=== PATIENT | female | born 1985 | race American Indian/Alaskan Native ===

== ENCOUNTER 2017-06-05 16:02 | Emergency (ER) | payer OTHER ==
[2017-06-05 16:23] VITALS: BP 136/78
[2017-06-05] MEDS ORDERED: DECADRON IM ONE (17:35)
--- NOTE | 2017-06-05 17:38 | Emergency Department Report ---
Entered by DANIA GOLD, acting as scribe for KJ GALICIA PA. - General Chief Complaint: Upper Respiratory Infection Stated Complaint: COUGHING/SORE THROAT/BACK PAIN Time Seen by Provider: 06/05/17 17:17 Source: patient Mode of arrival: Ambulatory Limitations: No Limitations - History of Present Illness Initial Comments: 32 y/o female with a PMHx of asthma, hyperlipidemia, and obesity presents to the ED c/o an upper respiratory infection that began 3 days ago. Aggravated with deep breaths and alleviated with nothing. Associated symptoms includes cough, 6/10 achy sore throat, rhinorrhea, and congestion, but she denies fever, chills, abdominal pain, nausea, vomiting, headache, dizziness, stiff neck, ear pain, chest pain, and SOB. Reports sore throat is aggravated with swallowing and alleviated with nothing. Took OTC cold medication with no relief. Denies any sick contacts. Allergic to penicillins. MD Complaint: cough, sore throat, nasal congestion Onset/Timin -: days(s) Severity: moderate Severity scale (0 -10): 6 (sore throat) Quality: aching Consistency: constant Improves With: nothing Worsens With: deep breaths Associated Symptoms: denies other symptoms, rhinorrhea, nasal congestion, sore throat, cough. denies: fever, chills, myalgias, diaphoresis, headache, stiff neck, chest pain, shortness of breath, abdominal pain, nausea, vomiting, diarrhea, dysuria, rash, confusion, right sweats, weight loss, epistaxis, hoarseness, ear pain Treatments Prior to Arrival: "cold medicine" - Related Data Previous Rx's Medication Instructions Recorded Last Taken Type Naproxen [Naprosyn] 500 mg PO BID PRN #10 tablet 06/30/16 Unknown Rx ALBUTEROL Inhaler [ProAir HFA 2 puff IH QID PRN #1 inhalation 06/05/17 Unknown Rx Inhaler] Benzonatate [Tessalon Perles] 100 mg PO Q8HR #20 capsule 06/05/17 Unknown Rx Doxycycline Monohydrate 100 mg PO BID #14 capsule 06/05/17 Unknown Rx [Doxycycline Monohydrate CAP] guaiFENesin/CODEINE [Robitussin AC] 5 ml PO Q8H #180 ml 06/05/17 Unknown Rx Allergies Allergy/AdvReac Type Severity Reaction Status Date / Time Penicillins Allergy Unknown Verified 06/30/16 10:54 ED Review of Systems Comment: All other systems reviewed and negative Constitutional: denies: chills, fever Eyes: denies: eye pain, eye discharge, vision change ENT: throat pain, congestion, other (rhinorrhea). denies: ear pain, dental pain , hearing loss, epistaxis Respiratory: cough. denies: orthopnea, shortness of breath, SOB with exertion, SOB at rest, stridor, wheezing Cardiovascular: denies: chest pain, palpitations, dyspnea on exertion, orthopnea , edema, syncope, paroxysmal nocturnal dyspnea Endocrine: no symptoms reported Gastrointestinal: denies: abdominal pain, nausea, vomiting, diarrhea Genitourinary: denies: urgency, dysuria, discharge Musculoskeletal: denies: back pain, joint swelling, arthralgia, myalgia Skin: denies: rash, lesions Neurological: denies: headache, weakness, numbness, paresthesias, confusion, abnormal gait, vertigo Psychiatric: denies: anxiety, depression Hematological/Lymphatic: denies: easy bleeding, easy bruising ED Past Medical Hx - Past Medical History Previous Medical History?: Yes Hx Diabetes: Yes ("borderline"--no meds) Hx Asthma: Yes Additional medical history: childhood heart murmur (Age 13). high cholesterol ( no meds). obesity - Surgical History Past Surgical History?: Yes Additional Surgical History: 2010; D&C 2006 - Family History Family history: no significant - Social History Smoking Status: Never Smoker Substance Use Type: None - Medications Home Medications: Home Medications Medication Instructions Recorded Confirmed Last Taken Type Naproxen [Naprosyn] 500 mg PO BID PRN #10 tablet 06/30/16 Unknown Rx ALBUTEROL Inhaler [ProAir HFA 2 puff IH QID PRN #1 inhalation 06/05/17 Unknown Rx Inhaler] Benzonatate [Tessalon Perles] 100 mg PO Q8HR #20 capsule 06/05/17 Unknown Rx Doxycycline Monohydrate 100 mg PO BID #14 capsule 06/05/17 Unknown Rx [Doxycycline Monohydrate CAP] guaiFENesin/CODEINE [Robitussin AC] 5 ml PO Q8H #180 ml 06/05/17 Unknown Rx ED Physical Exam - General Limitations: No Limitations General appearance: alert, in no apparent distress - Head Head exam: Present: atraumatic, normocephalic - Eye Eye exam: Present: normal appearance, PERRL, EOMI. Absent: scleral icterus, conjunctival injection, nystagmus, periorbital swelling, periorbital tenderness Pupils: Present: normal accommodation - ENT ENT exam: Present: normal exam, normal orophraynx, mucous membranes moist, TM's normal bilaterally, normal external ear exam, other (nasal turbinates congested bilaterally without erythema or drainage) - Expanded ENT Exam Expanded Ear exam: Present: normal external inspection Mouth exam: Present: normal external inspection (uvula is midline), tongue normal. Absent: drooling, trismus, muffled voice, tongue elevation, laceration Teeth exam: Present: normal inspection Throat exam: Positive: normal inspection. Negative: tonsillar erythema, tonsillomegaly, tonsillar exudate, R peritonsillar mass, L peritonsillar mass - Neck Neck exam: Present: normal inspection, full ROM. Absent: tenderness, meningismus, lymphadenopathy, thyromegaly - Respiratory Respiratory exam: Present: normal lung sounds bilaterally. Absent: respiratory distress, wheezes, rales, rhonchi, stridor, chest wall tenderness, accessory muscle use, decreased breath sounds - Cardiovascular Cardiovascular Exam: Present: regular rate, normal rhythm, normal heart sounds. Absent: systolic murmur, diastolic murmur, rubs, gallop - GI/Abdominal GI/Abdominal exam: Present: soft, normal bowel sounds. Absent: distended - Extremities Exam Extremities exam: Present: normal inspection - Back Exam Back exam: Present: normal inspection - Neurological Exam Neurological exam: Present: alert, oriented X3 - Psychiatric Psychiatric exam: Present: normal affect, normal mood - Skin Skin exam: Present: warm, dry, intact, normal color. Absent: rash ED Course Vital Signs 06/05/17 16:19 Temperature 98.4 F Pulse Rate 88 Respiratory 18 Rate Blood Pressure 136/78 O2 Sat by Pulse 100 Oximetry ED Medical Decision Making - Medical Decision Making patient is resting comfortably. NAD at this time, VSS for DC. ED Disposition Clinical Impression: Acute URI, Acute bronchitis Disposition: DC-01 TO HOME OR SELFCARE Is pt being admited?: No Does the pt Need Aspirin: No Condition: Good Instructions: Acute Bronchitis (ED) Prescriptions: ALBUTEROL Inhaler [ProAir HFA Inhaler] 2 puff IH QID PRN #1 inhalation PRN Reason: Shortness Of Breath Benzonatate [Tessalon Perles] 100 mg PO Q8HR #20 capsule Doxycycline Monohydrate [Doxycycline Monohydrate CAP] 100 mg PO BID #14 capsule guaiFENesin/CODEINE [Robitussin AC] 5 ml PO Q8H #180 ml Referrals: ANAY CALL MD [Staff Physician] - 3-5 Days Forms: Work/School Release Form(ED) Time of Disposition: 17:37 This documentation as recorded by the ASIF shultz JASMINE,accurately reflects the service I personally performed and the decisions made by , KJ GALICIA PA.
== END 2017-06-05 17:45 | disposition home or self-care (01) ==
LOC: ED 16:02
DX: J20.9 Acute bronchitis, unspecified (principal); J06.9 Acute upper respiratory infection, unspecified; J45.909 Unspecified asthma, uncomplicated; Z88.0 Allergy status to penicillin
CPT/HCPCS: 96372; 99282; J1100

== ENCOUNTER 2017-07-20 17:44 | Emergency (ER) | payer OTHER ==
[2017-07-20 17:53] VITALS: BP 128/72
== END 2017-07-20 17:46 | disposition left against medical advice (07) ==
LOC: ED 17:44
DX: M79.605 Pain in left leg (principal); Z53.21 Procedure and treatment not carried out due to patient leaving prior to being seen by health care provider

== ENCOUNTER 2017-10-31 11:39 | Emergency (ER) | payer OTHER ==
[2017-10-31 14:26] LABS: Hematocrit 36.7 % (30.3-42.9); Mean Corpuscular HGB Conc 33 % (30-34); Mean Corpuscular Hemoglobin 30 pg (28-32); Mean Corpuscular Volume 91 fl (79-97); Platelet Count 280 K/mm3 (140-440); Red Blood Count 4.03 M/mm3 (3.65-5.03); Red Cell Distribution Width 13.1 % (13.2-15.2)
[2017-10-31 14:28] LABS: BUN/Creatinine Ratio 15; Blood Urea Nitrogen 9 mg/dL (7-17); Calcium 8.4 mg/dL (8.4-10.2); Hemolysis Index 5
--- NOTE | 2017-10-31 14:37 | Vascular Lab Report ---
Left Lower Extremity Venous Duplex Study: Reason for Exam: Pain and swelling of the left lower extremity. Comments on the Right: A limited duplex study was done of the proximal veins of the right lower extremity. All veins visualized are freely compressible without evidence of internal echogenicity. Flow is spontaneous and phasic throughout. No evidence of acute or chronic thrombus is seen in any of the vessels visualized. Comments on the Left: All veins visualized are freely compressible without evidence of internal echogenicity. Flow is spontaneous and phasic throughout. No evidence of acute or chronic thrombus is seen in any of the vessels visualized. There are soft tissue change in the left knee area most compatible with an effusion or Goncalves's cyst. Impression: No evidence of acute or chronic deep venous thrombosis in the left lower extremity.
--- NOTE | 2017-10-31 22:49 | Emergency Department Report ---
HPI - General Chief Complaint: Extremity Injury, Lower Time Seen by Provider: 10/31/17 22:41 - HPI HPI: 32-year-old -[place] female comes in for left knee and right ankle pain. Patient reports that she had left knee surgery in March 2017 and she continues to have left leg pain. Patient also reports that her leg often have tingling and swelling. Patient complains of pain at her right ankle. Patient does follow up with a orthopedics which is Dr. Prince Lux. She is requesting a work excuse. Patient reports that she has had several x-rays of her ankle and leg and no seems to be able to find the reason why she has pain. Patient reports that she's been having right ankle pain for about 3 months. Patient does admit that she was told she has osteoarthritis in her left knee. ED Past Medical Hx - Past Medical History Hx Diabetes: Yes ("borderline"--no meds) Hx Asthma: Yes Additional medical history: childhood heart murmur (Age 13). high cholesterol ( no meds). obesity - Surgical History Additional Surgical History: 2010; D&C 2006,03/11/2017 left knee surgery - Social History Smoking Status: Unknown if ever smoked Substance Use Type: None - Medications Home Medications: Home Medications Medication Instructions Recorded Confirmed Last Taken Type ALBUTEROL Inhaler [ProAir HFA 2 puff IH QID PRN #1 inhalation 06/05/17 Unknown Rx Inhaler] Benzonatate [Tessalon Perles] 100 mg PO Q8HR #20 capsule 06/05/17 Unknown Rx Doxycycline Monohydrate 100 mg PO BID #14 capsule 06/05/17 Unknown Rx [Doxycycline Monohydrate CAP] guaiFENesin/CODEINE [Robitussin AC] 5 ml PO Q8H #180 ml 06/05/17 Unknown Rx Naproxen [Naprosyn TAB] 500 mg PO BID PRN #10 tablet 10/31/17 Unknown Rx ED Review of Systems ROS: Stated complaint: KNEE/ANKLE PAIN Other details as noted in HPI Comment: All other systems reviewed and negative Musculoskeletal: arthralgia, myalgia Physical Exam - Physical Exam Vital Signs: Vital Signs 10/31/17 12:43 Temperature 98.5 F Pulse Rate 67 Respiratory 18 Rate Blood Pressure 112/81 O2 Sat by Pulse 97 Oximetry Physical Exam: GENERAL: Alert and oriented x3, no apparent distress, Normal Gait, atraumatic. HEAD: Head is normocephalic and a-traumatic. EXTREMITIES/MUSCULOSKELETAL: No cyanosis, clubbing, rash, lesions or edema. Full ROM bilaterally. UE/LE Pulses 2+ bilaterally. LE and UE 5+ strength bilaterally NEUROLOGIC: No focal Deficit, Cranial nerves II through XII are grossly intact. No loss of sensation, No facial droop, . PSYCHIATRIC: Mood is congruent with affect, denies suicidal or homicidal ideations. SKIN: Warm and dry, No lesions, No ulceration or induration present ED Course Vital Signs 10/31/17 12:43 Temperature 98.5 F Pulse Rate 67 Respiratory 18 Rate Blood Pressure 112/81 O2 Sat by Pulse 97 Oximetry ED Medical Decision Making - Lab Data Result diagrams: 10/31/17 13:33 10/31/17 13:33 - Radiology Data Radiology results: report reviewed, image reviewed Comments on the Right: A limited duplex study was done of the proximal veins of the right lower extremity. All veins visualized are freely compressible without evidence of internal echogenicity. Flow is spontaneous and phasic throughout. No evidence of acute or chronic thrombus is seen in any of the vessels visualized. Comments on the Left: All veins visualized are freely compressible without evidence of internal echogenicity. Flow is spontaneous and phasic throughout. No evidence of acute or chronic thrombus is seen in any of the vessels visualized. There are soft tissue change in the left knee area most compatible with an effusion or Goncalves's cyst. Impression: No evidence of acute or chronic deep venous thrombosis in the left lower extremity. Transcribed By: KELLY Dictated By: STEF COLEMAN MD Electronically Authenticated By: STEF COLEMAN MD Critical care attestation.: If time is entered above; I have spent that time in minutes in the direct care of this critically ill patient, excluding procedure time. ED Disposition Clinical Impression: Chronic pain of right ankle Left knee pain Qualifiers: Chronicity: chronic Qualified Code(s): M25.562 - Pain in left knee; G89.29 - Other chronic pain; G89.29 - Other chronic pain Disposition: DC-01 TO HOME OR SELFCARE Is pt being admited?: No Does the pt Need Aspirin: No Condition: Stable Additional Instructions: Please take naproxen for pain. Follow-up with orthopedist. Prescriptions: Naproxen [Naprosyn TAB] 500 mg PO BID PRN #10 tablet PRN Reason: pain Referrals: MITESH HERNÁNDEZ MD [Primary Care Provider] - 3-5 Days [facility] [Provider Group] - 3-5 Days Forms: Work/School Release Form(ED)
[2017-10-31 23:28] VITALS: BP 117/63
== END 2017-10-31 23:28 | disposition home or self-care (01) ==
LOC: ED 11:39
DX: M25.571 Pain in right ankle and joints of right foot (principal); M17.12 Unilateral primary osteoarthritis, left knee; G89.29 Other chronic pain; J45.909 Unspecified asthma, uncomplicated; E78.00 Pure hypercholesterolemia, unspecified; Z88.0 Allergy status to penicillin
CPT/HCPCS: 36415; 80048; 84702; 85027; 99283

== ENCOUNTER 2018-03-15 14:52 | Emergency (ER) | payer OTHER ==
[2018-03-15 14:56] VITALS: BP 127/41
--- NOTE | 2018-03-15 16:09 | Emergency Department Report ---
ED Lower Extremity HPI - General Chief Complaint: Extremity Injury, Lower Stated Complaint: RIGHT ANKLE PAIN Time Seen by Provider: 03/15/18 15:48 Source: patient Mode of arrival: Ambulatory Limitations: No Limitations - History of Present Illness Initial Comments: Ms. Hyatt is a 32-year-old female with history of severe obesity and chronic ankle pain. Last year she injured her left knee at her place of employment. Subsequently she developed ankle pain in June. Has had chronic pain and left ankle with mild swelling. She is followed by Dr. Jimenez. Dr. Jimenez referred her to a ankle insurance customer service specialist specialist. She was prescribed a topical cream for the pain and swelling. She denies fever. She denies new injury. Her current weight is approximately 315 pounds. In high school she weighed approximately 150 pounds. MD Complaint: ankle injury -: Gradual, month(s) (9) Injury: Hip: Right, Ankle: Right Improves With: nothing Worsens With: weight bearing - Related Data Previous Rx's Medication Instructions Recorded Last Taken Type ALBUTEROL Inhaler [ProAir HFA 2 puff IH QID PRN #1 inhalation 06/05/17 Unknown Rx Inhaler] Benzonatate [Tessalon Perles] 100 mg PO Q8HR #20 capsule 06/05/17 Unknown Rx Doxycycline Monohydrate 100 mg PO BID #14 capsule 06/05/17 Unknown Rx [Doxycycline Monohydrate CAP] guaiFENesin/CODEINE [Robitussin AC] 5 ml PO Q8H #180 ml 06/05/17 Unknown Rx Naproxen [Naprosyn TAB] 500 mg PO BID PRN #10 tablet 10/31/17 Unknown Rx Ibuprofen 400 mg PO QID 5 Days #20 tablet 03/15/18 Unknown Rx Allergies Allergy/AdvReac Type Severity Reaction Status Date / Time Penicillins Allergy Unknown Verified 03/15/18 14:53 ED Review of Systems ROS: Stated complaint: RIGHT ANKLE PAIN Other details as noted in HPI Constitutional: denies: fever, malaise Respiratory: denies: cough, shortness of breath Cardiovascular: denies: chest pain Neurological: denies: headache ED Past Medical Hx - Past Medical History Hx Diabetes: Yes ("borderline"--no meds) Hx Asthma: Yes Additional medical history: childhood heart murmur (Age 13). high cholesterol ( no meds). obesity - Surgical History Additional Surgical History: 2010; D&C 2006,03/11/2017 left knee surgery - Social History Smoking Status: Never Smoker Substance Use Type: None - Medications Home Medications: Home Medications Medication Instructions Recorded Confirmed Last Taken Type ALBUTEROL Inhaler [ProAir HFA 2 puff IH QID PRN #1 inhalation 06/05/17 Unknown Rx Inhaler] Benzonatate [Tessalon Perles] 100 mg PO Q8HR #20 capsule 06/05/17 Unknown Rx Doxycycline Monohydrate 100 mg PO BID #14 capsule 06/05/17 Unknown Rx [Doxycycline Monohydrate CAP] guaiFENesin/CODEINE [Robitussin AC] 5 ml PO Q8H #180 ml 06/05/17 Unknown Rx Naproxen [Naprosyn TAB] 500 mg PO BID PRN #10 tablet 10/31/17 Unknown Rx Ibuprofen 400 mg PO QID 5 Days #20 tablet 03/15/18 Unknown Rx ED Physical Exam - General Limitations: No Limitations General appearance: alert, in no apparent distress - Head Head exam: Present: atraumatic, normocephalic - Eye Eye exam: Present: normal appearance - ENT ENT exam: Present: mucous membranes moist - Respiratory Respiratory exam: Absent: respiratory distress - Cardiovascular Cardiovascular Exam: Absent: systolic murmur, diastolic murmur, rubs, gallop - Extremities Exam Extremities exam: Present: other (mild ankle edema ) - Back Exam Back exam: Present: normal inspection - Neurological Exam Neurological exam: Present: alert, oriented X3 - Psychiatric Psychiatric exam: Present: normal affect, normal mood - Skin Skin exam: Present: warm, dry, intact, normal color. Absent: rash ED Course Vital Signs 03/15/18 14:50 Temperature 98.6 F Pulse Rate 65 Respiratory 18 Rate Blood Pressure 127/41 O2 Sat by Pulse 97 Oximetry ED Lower Extremity MDM - Medical Decision Making right ankle pain and edema chronic suspect with severe obesity DJD is highly likely no indication of septic or gouty arthritis rx: ibuprofen referred to PCP Critical care attestation.: If time is entered above; I have spent that time in minutes in the direct care of this critically ill patient, excluding procedure time. ED Disposition Clinical Impression: Chronic ankle pain Disposition: DC-01 TO HOME OR SELFCARE Is pt being admited?: No Does the pt Need Aspirin: No Condition: Stable Instructions: Arthralgia (ED) Prescriptions: Ibuprofen 400 mg PO QID 5 Days #20 tablet Referrals: PRIMARY CARE, [Primary Care Provider] - 3-5 Days Forms: Work/School Release Form(ED) Time of Disposition: 16:09
== END 2018-03-15 16:19 | disposition home or self-care (01) ==
LOC: ED 14:52
DX: R22.42 Localized swelling, mass and lump, left lower limb (principal); M25.572 Pain in left ankle and joints of left foot; G89.29 Other chronic pain; M25.562 Pain in left knee; J45.909 Unspecified asthma, uncomplicated; R03.0 Elevated blood-pressure reading, without diagnosis of hypertension; Z79.899 Other long term (current) drug therapy; Z88.0 Allergy status to penicillin; Z98.890 Other specified postprocedural states
CPT/HCPCS: 99282

== ENCOUNTER 2018-07-06 11:12 | Emergency (ER) | payer MEDICAID, OTHER ==
[2018-07-06 11:22] VITALS: BP 140/66
[2018-07-06 12:09] LABS: HCG Qualitative,Urine Negative (Negative)
--- NOTE | 2018-07-06 12:29 | Emergency Department Report ---
ED Upper Extremity Inj HPI - General Chief Complaint: Extremity Injury, Upper Stated Complaint: LT WRIST PAIN Time Seen by Provider: 07/06/18 12:23 Source: patient Mode of arrival: Ambulatory Limitations: No Limitations - History of Present Illness MD Complaint: Injury to:: left -: Sudden Other Extremity Injury: Wrist: Right Handedness: right Place: home Improves With: none Worsens With: none Context: fall Associated Symptoms: denies other symptoms - Related Data Previous Rx's Medication Instructions Recorded Last Taken Type ALBUTEROL Inhaler (OR & NICU) 2 puff IH QID PRN #1 inhalation 06/05/17 Unknown Rx [ProAir HFA Inhaler] Benzonatate [Tessalon Perles] 100 mg PO Q8HR #20 capsule 06/05/17 Unknown Rx Doxycycline Monohydrate 100 mg PO BID #14 capsule 06/05/17 Unknown Rx [Doxycycline Monohydrate CAP] guaiFENesin/CODEINE [Robitussin AC] 5 ml PO Q8H #180 ml 06/05/17 Unknown Rx Naproxen [Naprosyn TAB] 500 mg PO BID PRN #10 tablet 10/31/17 Unknown Rx Ibuprofen 400 mg PO QID 5 Days #20 tablet 03/15/18 Unknown Rx Allergies Allergy/AdvReac Type Severity Reaction Status Date / Time Penicillins Allergy Unknown Verified 03/15/18 14:53 all cillins Allergy Unknown Uncoded 07/06/18 11:23 ED Review of Systems ROS: Stated complaint: LT WRIST PAIN Other details as noted in HPI Comment: All other systems reviewed and negative Constitutional: no symptoms reported Respiratory: no symptoms reported Endocrine: no symptoms reported Musculoskeletal: other (LWRIST PAIN SP FOSH YESTERDAY) ED Past Medical Hx - Past Medical History Hx Diabetes: Yes ("borderline"--no meds) Hx Asthma: Yes Additional medical history: childhood heart murmur (Age 13). high cholesterol ( no meds). obesity - Surgical History Additional Surgical History: 2010; D&C 2006,03/11/2017 left knee surgery - Social History Smoking Status: Never Smoker Substance Use Type: None - Medications Home Medications: Home Medications Medication Instructions Recorded Confirmed Last Taken Type ALBUTEROL Inhaler (OR & NICU) 2 puff IH QID PRN #1 inhalation 06/05/17 Unknown Rx [ProAir HFA Inhaler] Benzonatate [Tessalon Perles] 100 mg PO Q8HR #20 capsule 06/05/17 Unknown Rx Doxycycline Monohydrate 100 mg PO BID #14 capsule 06/05/17 Unknown Rx [Doxycycline Monohydrate CAP] guaiFENesin/CODEINE [Robitussin AC] 5 ml PO Q8H #180 ml 06/05/17 Unknown Rx Naproxen [Naprosyn TAB] 500 mg PO BID PRN #10 tablet 10/31/17 Unknown Rx Ibuprofen 400 mg PO QID 5 Days #20 tablet 03/15/18 Unknown Rx ED Physical Exam - General Limitations: No Limitations General appearance: alert - Head Head exam: Present: atraumatic - Eye Eye exam: Present: normal appearance - ENT ENT exam: Present: mucous membranes moist - Neck Neck exam: Present: normal inspection - Respiratory Respiratory exam: Present: normal lung sounds bilaterally - Cardiovascular Cardiovascular Exam: Present: regular rate - GI/Abdominal GI/Abdominal exam: Present: soft, normal bowel sounds - Rectal Rectal exam: Present: deferred - Extremities Exam Extremities exam: Present: normal inspection - Expanded Upper Extremity Exam Left Upper Arm exam: Present: normal inspection Elbow exam: Present: normal inspection Forearm Wrist exam: Present: tenderness, swelling. Absent: abrasion, laceration , ecchymosis, deformity, crepidus, dislocation Hand Wrist exam: Present: normal inspection Vascular: Present: normal capillary refill, radial pulse, brachial pulse, ulnar pulse - Back Exam Back exam: Present: normal inspection, full ROM. Absent: tenderness - Neurological Exam Neurological exam: Present: alert, oriented X3 - Psychiatric Psychiatric exam: Present: normal affect, normal mood - Skin Skin exam: Present: warm, dry, intact, normal color. Absent: rash, cyanosis, diaphoretic, erythema, urticaria, vesicles ED Course Vital Signs 07/06/18 11:18 Temperature 98.3 F Pulse Rate 60 Respiratory 20 Rate Blood Pressure 140/66 O2 Sat by Pulse 98 Oximetry ED Medical Decision Making - Radiology Data Radiology results: report reviewed, image reviewed - Medical Decision Making NO SNUFF BOX TENDERNESS XRAY NEG IMMOB W SOFT SPLINT DC HOME W ORTHO FOLLOW UP NEUROVASC INTACT. - RADIAL AND ULNAR PULSE PLUS 2, RAPID CAP REFILL, DISTAL SENSATION INTACT. - Differential Diagnosis RO FX Critical care attestation.: If time is entered above; I have spent that time in minutes in the direct care of this critically ill patient, excluding procedure time. ED Disposition Clinical Impression: Wrist pain, left, Fall, Left wrist sprain Disposition: TO HOME OR SELFCARE Is pt being admited?: No Does the pt Need Aspirin: No Condition: Stable Instructions: Wrist Injury (ED) Additional Instructions: ICE ELEVATE TYLENOL OR MOTRIN FOR PAIN SPLINT INSTRUCTED ICE FOLLOW UP WITH ORTHO MD DIET TOLERATED Referrals: PRIMARY CARE, [Primary Care Provider] - 3-5 Days ESTEPHANIA BLACKWELL MD [Staff Physician] - 3-5 Days Time of Disposition: 12:55
--- NOTE | 2018-07-06 13:10 | XRay Report ---
XRAY LEFT WRIST THREE VIEWS:07/06/18 11:12:00 CLINICAL: Fall and wrist pain. FINDINGS: The examination was performed portable. The carpal bones are intact. No fracture or dislocation. Distal radius and ulna are intact. Normal soft tissues. IMPRESSION: Normal study.
[2018-07-06] MEDS ORDERED: NAPROSYN PO ONE (13:30)
== END 2018-07-06 13:24 | disposition home or self-care (01) ==
LOC: ED 11:12
DX: S63.502A Unspecified sprain of left wrist, initial encounter (principal); E11.9 Type 2 diabetes mellitus without complications; J45.909 Unspecified asthma, uncomplicated; Z88.1 Allergy status to other antibiotic agents; Z88.0 Allergy status to penicillin; W18.30XA Fall on same level, unspecified, initial encounter; Y93.89 Activity, other specified; Y92.89 Other specified places as the place of occurrence of the external cause; Y99.8 Other external cause status
CPT/HCPCS: 81025; 99283

== ENCOUNTER 2018-10-12 19:41 | Emergency (ER) | payer MEDICAID ==
[2018-10-12] MEDS ORDERED: TYLENOL PO ONE (20:03)
[2018-10-12] MEDS ORDERED: TYLENOL ONE (20:07)
[2018-10-12 20:18] LABS: Hematocrit 40.9 % (30.3-42.9); Hemoglobin 13.7 gm/dl (10.1-14.3); Mean Corpuscular HGB Conc 34 % (30-34); Mean Corpuscular Volume 93 fl (79-97); Platelet Count 260 K/mm3 (140-440); Red Blood Count 4.43 M/mm3 (3.65-5.03); Red Cell Distribution Width 13.3 % (13.2-15.2)
[2018-10-12 20:45] LABS: Alanine Aminotransferase 18 units/L (7-56); BUN/Creatinine Ratio 7; Blood Urea Nitrogen 6 mg/dL (7-17); Hemolysis Index 10
[2018-10-12] MEDS ORDERED: ZOFRAN IV ONE (20:49)
[2018-10-12] MEDS ORDERED: PROVENTIL IH ONE (20:49)
[2018-10-12] MEDS ORDERED: ATROVENT IH ONE (20:49)
[2018-10-12] MEDS ORDERED: NACL 0.9% 1000 ML 1,000 ML IV ONE ×2 (20:49→22:45)
[2018-10-12] MEDS ORDERED: DECADRON IV ONE (20:49)
[2018-10-12 20:56] LABS: Bilirubin,Urine NEG (Negative); Blood,Urine SM (Negative); Color,Urine Amber (Yellow); Mucus,Urine FEW /HPF
--- NOTE | 2018-10-12 21:01 | Emergency Department Report ---
- General Chief Complaint: Upper Respiratory Infection Stated Complaint: FEVER/COUGHING/BODYACHES Time Seen by Provider: 10/12/18 20:48 Source: patient Mode of arrival: Ambulatory Limitations: No Limitations - History of Present Illness Initial Comments: There is a 33-year-old female with history of asthma presents with malaise fever chills or productive cough 3 weeks normal asthma treatments patient states nausea no vomiting no diarrhea patient is tolerating by mouth intake. MD Complaint: fever, cough, rhinorrhea, nasal congestion, sinus pain Onset/Timin -: week(s) Severity: moderate Severity scale (0 -10): 4 Quality: aching Consistency: intermittent Improves With: nothing Worsens With: activity Associated Symptoms: fever, chills, myalgias, rhinorrhea, nasal congestion, sore throat, cough, nausea - Related Data Previous Rx's Medication Instructions Recorded Last Taken Type ALBUTEROL Inhaler (OR & NICU) 2 puff IH QID PRN #1 inhalation 06/05/17 Unknown Rx [ProAir HFA Inhaler] Benzonatate [Tessalon Perles] 100 mg PO Q8HR #20 capsule 06/05/17 Unknown Rx Doxycycline Monohydrate 100 mg PO BID #14 capsule 06/05/17 Unknown Rx [Doxycycline Monohydrate CAP] guaiFENesin/CODEINE [Robitussin AC] 5 ml PO Q8H #180 ml 06/05/17 Unknown Rx Ibuprofen 400 mg PO QID 5 Days #20 tablet 03/15/18 Unknown Rx Cyclobenzaprine [Flexeril 10 MG 10 mg PO TID #15 tablet 08/18/18 Unknown Rx TAB] Naproxen [Naprosyn TAB] 500 mg PO BID PRN #10 tablet 08/18/18 Unknown Rx ALBUTEROL Inhaler(NF) [VENTOLIN 2 puff IH Q4H PRN #1 inha 10/13/18 Unknown Rx Inhaler(NF)] Azithromycin [Zithromax Z-SEAMUS] 250 mg PO DAILY #6 tab 10/13/18 Unknown Rx Codeine Phosphate/Guaifenesin 5 ml PO TID PRN #120 ml 10/13/18 Unknown Rx [Guaifenesin-Codeine Syrup] Ibuprofen 800 mg PO TID PRN #30 tablet 10/13/18 Unknown Rx Allergies Allergy/AdvReac Type Severity Reaction Status Date / Time Penicillins Allergy Unknown Verified 03/15/18 14:53 all cillins Allergy Unknown Uncoded 07/06/18 11:23 ED Review of Systems ROS: Stated complaint: FEVER/COUGHING/BODYACHES Other details as noted in HPI Constitutional: chills, fever, malaise Eyes: denies: eye pain, eye discharge, vision change ENT: throat pain, congestion Respiratory: cough, wheezing Cardiovascular: denies: chest pain, palpitations Endocrine: no symptoms reported Gastrointestinal: nausea. denies: abdominal pain, vomiting, diarrhea Genitourinary: denies: urgency, dysuria, discharge Musculoskeletal: other (bodyaches). denies: back pain, joint swelling, arthralgia Skin: denies: rash, lesions Neurological: denies: headache, weakness, paresthesias Psychiatric: denies: anxiety, depression Hematological/Lymphatic: denies: easy bleeding, easy bruising ED Past Medical Hx - Past Medical History Previous Medical History?: Yes Hx Diabetes: Yes ("borderline"--no meds) Hx Asthma: Yes Additional medical history: childhood heart murmur (Age 13). high cholesterol (no meds). obesity - Surgical History Past Surgical History?: Yes Additional Surgical History: 2010; D&C 2006,03/11/2017 left knee surgery - Social History Smoking Status: Never Smoker Substance Use Type: None - Medications Home Medications: Home Medications Medication Instructions Recorded Confirmed Last Taken Type ALBUTEROL Inhaler (OR & NICU) 2 puff IH QID PRN #1 inhalation 06/05/17 Unknown Rx [ProAir HFA Inhaler] Benzonatate [Tessalon Perles] 100 mg PO Q8HR #20 capsule 06/05/17 Unknown Rx Doxycycline Monohydrate 100 mg PO BID #14 capsule 06/05/17 Unknown Rx [Doxycycline Monohydrate CAP] guaiFENesin/CODEINE [Robitussin AC] 5 ml PO Q8H #180 ml 06/05/17 Unknown Rx Ibuprofen 400 mg PO QID 5 Days #20 tablet 03/15/18 Unknown Rx Cyclobenzaprine [Flexeril 10 MG 10 mg PO TID #15 tablet 08/18/18 Unknown Rx TAB] Naproxen [Naprosyn TAB] 500 mg PO BID PRN #10 tablet 08/18/18 Unknown Rx ALBUTEROL Inhaler(NF) [VENTOLIN 2 puff IH Q4H PRN #1 inha 10/13/18 Unknown Rx Inhaler(NF)] Azithromycin [Zithromax Z-SEAMUS] 250 mg PO DAILY #6 tab 10/13/18 Unknown Rx Codeine Phosphate/Guaifenesin 5 ml PO TID PRN #120 ml 10/13/18 Unknown Rx [Guaifenesin-Codeine Syrup] Ibuprofen 800 mg PO TID PRN #30 tablet 10/13/18 Unknown Rx ED Physical Exam - General Limitations: No Limitations General appearance: alert, in no apparent distress - Head Head exam: Present: atraumatic, normocephalic - Eye Eye exam: Present: normal appearance, PERRL, EOMI - ENT ENT exam: Present: normal orophraynx, mucous membranes moist, TM's normal bilaterally, normal external ear exam - Neck Neck exam: Present: normal inspection, full ROM. Absent: tenderness, meningismus, lymphadenopathy, thyromegaly - Respiratory Respiratory exam: Present: wheezes. Absent: stridor, chest wall tenderness, prolonged expiratory - Cardiovascular Cardiovascular Exam: Present: normal rhythm, tachycardia, normal heart sounds. Absent: systolic murmur, diastolic murmur, rubs, gallop - GI/Abdominal GI/Abdominal exam: Present: soft, normal bowel sounds. Absent: tenderness, rigid, bruit, hernia - Rectal Rectal exam: Present: deferred - Extremities Exam Extremities exam: Present: normal inspection, normal capillary refill - Back Exam Back exam: Present: full ROM. Absent: tenderness, CVA tenderness (R), CVA ten derness (L), rash noted - Neurological Exam Neurological exam: Present: alert, oriented X3, CN II-XII intact, normal gait - Psychiatric Psychiatric exam: Present: normal affect, normal mood - Skin Skin exam: Present: warm, dry, intact, normal color. Absent: rash ED Course Vital Signs 10/12/18 10/12/18 10/12/18 19:49 19:52 21:05 Temperature 101.8 F H 101.8 F H Pulse Rate 122 H 120 H Respiratory 18 18 20 Rate Blood Pressure 137/89 137/89 O2 Sat by Pulse 96 96 Oximetry ED Medical Decision Making - Lab Data Result diagrams: 10/12/18 20:05 10/12/18 20:05 Labs 10/12/18 10/12/1819 20:05 20:05 20:05 WBC 8.8 RBC 4.43 Hgb 13.7 Hct 40.9 MCV 93 MCH 31 MCHC 34 RDW 13.3 Plt Count 260 [place] % (Auto) Vegetable Farmer Add Manual Diff Complete Total Counted 100 Seg Neuts % (Manual) 63.0 Band Neutrophils % 0 Lymphocytes % (Manual) 19.0 Reactive Lymphs % (Man) 0 Monocytes % (Manual) 18.0 H Eosinophils % (Manual) 0 Basophils % (Manual) 0 Metamyelocytes % 0 Myelocytes % 0 Promyelocytes % 0 Blast Cells % 0 Nucleated RBC % Not Reportable Seg Neutrophils # Man 5.5 Band Neutrophils # 0.0 Lymphocytes # (Manual) 1.7 Abs React Lymphs (Man) 0.0 Monocytes # (Manual) 1.6 H Eosinophils # (Manual) 0.0 Basophils # (Manual) 0.0 Metamyelocytes # 0.0 Myelocytes # 0.0 Promyelocytes # 0.0 Blast Cells # 0.0 WBC Morphology Not Reportable Hypersegmented Neuts Not Reportable Hyposegmented Neuts Not Reportable Hypogranular Neuts Not Reportable Smudge Cells Not Reportable Toxic Granulation Not Reportable Toxic Vacuolation Not Reportable Dohle Bodies Not Reportable Pelger-Huet Anomaly Not Reportable Andrew Rods Not Reportable Platelet Estimate Consistent w auto Clumped Platelets Not Reportable Plt Clumps, EDTA Not Reportable Large Platelets Not Reportable Giant Platelets Not Reportable Platelet Satelliting Not Reportable Plt Morphology Comment Not Reportable RBC Morphology Normal Dimorphic RBCs Not Reportable Polychromasia Not Reportable Hypochromasia Not Reportable Poikilocytosis Not Reportable Anisocytosis Not Reportable Microcytosis Not Reportable Macrocytosis Not Reportable Spherocytes Not Reportable Pappenheimer Bodies Not Reportable Sickle Cells Not Reportable Target Cells Not Reportable Tear Drop Cells Not Reportable Ovalocytes Not Reportable Helmet Cells Not Reportable [place] Bodies Not Reportable Vickery Rings Not Reportable Radha Cells Not Reportable Bite Cells Not Reportable Crenated Cell Not Reportable Elliptocytes Not Reportable Acanthocytes (Spur) Not Reportable Rouleaux Not Reportable Hemoglobin C Crystals Not Reportable Schistocytes Not Reportable Malaria parasites Not Reportable Sincere Bodies Not Reportable Hem Pathologist Commnt No Sodium 138 Potassium 3.4 L Chloride 101.7 Carbon Dioxide 25 Anion Gap 15 BUN 6 L Creatinine 0.9 Estimated GFR > 60 BUN/Creatinine Ratio 7 Glucose 103 H Calcium 9.0 Total Bilirubin 0.90 AST 19 ALT 18 Alkaline Phosphatase 70 Total Protein 7.4 Albumin 4.0 Albumin/Globulin Ratio 1.2 HCG, Qual Negative Urine Color Urine Turbidity Urine pH Ur Specific [place] Urine Protein Urine Glucose (UA) Urine Ketones Urine Blood Urine Nitrite Urine Bilirubin Urine Urobilinogen Ur Leukocyte Esterase Urine WBC (Auto) Urine RBC (Auto) U Epithel Cells (Auto) Urine Mucus 10/12/18 20:39 WBC RBC Hgb Hct MCV MCH MCHC RDW Plt Count [place] % (Auto) Add Manual Diff Total Counted Seg Neuts % (Manual) Band Neutrophils % Lymphocytes % (Manual) Reactive Lymphs % (Man) Monocytes % (Manual) Eosinophils % (Manual) Basophils % (Manual) Metamyelocytes % Myelocytes % Promyelocytes % Blast Cells % Nucleated RBC % Seg Neutrophils # Man Band Neutrophils # Lymphocytes # (Manual) Abs React Lymphs (Man) Monocytes # (Manual) Eosinophils # (Manual) Basophils # (Manual) Metamyelocytes # Myelocytes # Promyelocytes # Blast Cells # WBC Morphology Hypersegmented Neuts Hyposegmented Neuts Hypogranular Neuts Smudge Cells Toxic Granulation Toxic Vacuolation Dohle Bodies Pelger-Huet Anomaly Andrew Rods Platelet Estimate Clumped Platelets Plt Clumps, EDTA Large Platelets Giant Platelets Platelet Satelliting Plt Morphology Comment RBC Morphology Dimorphic RBCs Polychromasia Hypochromasia Poikilocytosis Anisocytosis Microcytosis Macrocytosis Spherocytes Pappenheimer Bodies Sickle Cells Target Cells Tear Drop Cells Ovalocytes Helmet Cells [place] Bodies Vickery Rings Rudyard Cells Bite Cells Crenated Cell Elliptocytes Acanthocytes (Spur) Rouleaux Hemoglobin C Crystals Schistocytes Malaria parasites Sincere Bodies Hem Pathologist Commnt Sodium Potassium Chloride Carbon Dioxide Anion Gap BUN Creatinine Estimated GFR BUN/Creatinine Ratio Glucose Calcium Total Bilirubin AST ALT Alkaline Phosphatase Total Protein Albumin Albumin/Globulin Ratio HCG, Qual Urine Color Becca Urine Turbidity Clear Urine pH 5.0 Ur Specific [place] 1.014 Urine Protein 100 mg/dl Urine Glucose (UA) Neg Urine Ketones Neg Urine Blood Sm Urine Nitrite Neg Urine Bilirubin Neg Urine Urobilinogen 4.0 Ur Leukocyte Esterase Neg Urine WBC (Auto) 3.0 Urine RBC (Auto) 2.0 U Epithel Cells (Auto) 4.0 Urine Mucus Few - Radiology Data Radiology results: report reviewed, image reviewed FINDINGS: There appear to be patchy areas of pulmonary consolidation in the perihilar regions bilaterally and right lung base. There is no evidence of pneumothorax or pleural fluid collection. The cardiac silhouette is normal size. The thoracic aorta and bony structures are unremarkable. IMPRESSION: 1. Appearance of bilateral pulmonary infiltrates. Probable pneumonia. Follow-up to resolution is recommended. Transcribed By: ED Dictated By: CHAYA FUENTES MD Electronically Authenticated By: CHAYA FUENTES MD Signed Date/Time: 10/12/182 - Medical Decision Making symptoms improved , pt is now ambulatory from room to main ed and return to room without increase sob pt advised breathing improved ,there is no wheezing no weakness no sob will dc to home , with zpack , albuterol inhaler, ibuprofen, sirena ratussin follow up with pcp in 2-3 days return to emergency department if symptoms worsen. pt verbalized agreement and understanding of same. Critical care attestation.: If time is entered above; I have spent that time in minutes in the direct care of this critically ill patient, excluding procedure time. ED Disposition Clinical Impression: CAP (community acquired pneumonia) Qualifiers: Laterality: unspecified laterality Qualified Code(s): J18.9 - Pneumonia, unspecified organism Disposition: DC-01 TO HOME OR SELFCARE Is pt being admited?: No Does the pt Need Aspirin: No Condition: Stable Instructions: Bacterial Pneumonia (ED), Community-acquired Pneumonia (ED) Prescriptions: ALBUTEROL Inhaler(NF) [VENTOLIN Inhaler(NF)] 2 puff IH Q4H PRN #1 inha PRN Reason: shortness of breath wheezing Azithromycin [Zithromax Z-SEAMUS] 250 mg PO DAILY #6 tab Codeine Phosphate/Guaifenesin [Guaifenesin-Codeine Syrup] 5 ml PO TID PRN #120 ml PRN Reason: Cough Ibuprofen 800 mg PO TID PRN #30 tablet PRN Reason: pain fever Referrals: PRIMARY CARE, [Primary Care Provider] - 3-5 Days [facility] [Outside] - 3-5 Days Forms: Work/School Release Form(ED) Time of Disposition: 00:23
[2018-10-12 21:34] LABS: Basophils % (Manual) 0 % (0.0-1.8); Eosinophils % (Manual) 0 % (0.0-4.3); Platelet Estimate Consistent w Auto; RBC Morphology Normal; Total Cells Counted 100
--- NOTE | 2018-10-12 22:07 | XRay Report ---
FINAL REPORT EXAM: XR CHEST ROUTINE 2V HISTORY: cough with fever TECHNIQUE: PA and lateral views of the chest Comparison: None FINDINGS: There appear to be patchy areas of pulmonary consolidation in the perihilar regions bilaterally and r ight lung base. There is no evidence of pneumothorax or pleural fluid collection. The cardiac silhouette is normal size. The thoracic aorta and bony structures are unremarkable. IMPRESSION: 1. Appearance of bilateral pulmonary infiltrates. Probable pneumonia. Follow-up to resolution is david mmended.
[2018-10-12] MEDS ORDERED: ROCEPHIN/NS 1 GM/50 ML 1 GM/50 ML BAG IV ONE (22:45)
[2018-10-12 23:42] LABS: INR 1.24 (0.87-1.13)
[2018-10-12 23:43] LABS: Partial Thromboplastin Time 33.3 Sec. (24.2-36.6)
[2018-10-13 02:08] VITALS: BP 107/70
== END 2018-10-13 01:55 | disposition home or self-care (01) ==
LOC: ED 19:41
DX: J18.9 Pneumonia, unspecified organism (principal); E11.9 Type 2 diabetes mellitus without complications; E78.00 Pure hypercholesterolemia, unspecified; J45.909 Unspecified asthma, uncomplicated; Z88.0 Allergy status to penicillin; Z79.899 Other long term (current) drug therapy
CPT/HCPCS: 36415; 71046; 80053; 81001; 82140; 84703; 85007; 85025; 85610; 85730; 87040; 94640; 96365; 96375; 99284; J0696; J1100; J2405; J7030

== ENCOUNTER 2018-10-20 13:52 | Emergency (ER) | payer MEDICAID ==
--- NOTE | 2018-10-20 14:29 | Emergency Department Report ---
ED General Adult HPI - General Chief complaint: Pain General Stated complaint: SORENESS WHEN COUGHING Time Seen by Provider: 10/20/18 14:20 Source: patient Mode of arrival: Ambulatory Limitations: No Limitations - History of Present Illness Initial comments: Andreea is a very pleasant 33-year-old female who was recovering from pneumonia and flulike illness since last week. She finished a course of antibiotics. Her symptoms have improved. However she has persistent body aches. Denies any current fever. Denies any chills. She still has mild generalized malaise. She explains "I does want this to be over." -: week(s) (1) Location: upper extremity, lower extremity Severity scale (0 -10): 5 Quality: aching Consistency: constant Improves with: medication (antibiotics) Associated Symptoms: cough, malaise - Related Data Previous Rx's Medication Instructions Recorded Last Taken Type ALBUTEROL Inhaler (OR & NICU) 2 puff IH QID PRN #1 inhalation 06/05/17 Unknown Rx [ProAir HFA Inhaler] Benzonatate [Tessalon Perles] 100 mg PO Q8HR #20 capsule 06/05/17 Unknown Rx Doxycycline Monohydrate 100 mg PO BID #14 capsule 06/05/17 Unknown Rx [Doxycycline Monohydrate CAP] guaiFENesin/CODEINE [Robitussin AC] 5 ml PO Q8H #180 ml 06/05/17 Unknown Rx Ibuprofen 400 mg PO QID 5 Days #20 tablet 03/15/18 Unknown Rx Cyclobenzaprine [Flexeril 10 MG 10 mg PO TID #15 tablet 08/18/18 Unknown Rx TAB] Naproxen [Naprosyn TAB] 500 mg PO BID PRN #10 tablet 08/18/18 Unknown Rx ALBUTEROL Inhaler(NF) [VENTOLIN 2 puff IH Q4H PRN #1 inha 10/13/18 Unknown Rx Inhaler(NF)] Azithromycin [Zithromax Z-SEAMUS] 250 mg PO DAILY #6 tab 10/13/18 Unknown Rx Codeine Phosphate/Guaifenesin 5 ml PO TID PRN #120 ml 10/13/18 Unknown Rx [Guaifenesin-Codeine Syrup] Ibuprofen 800 mg PO TID PRN #30 tablet 10/13/18 Unknown Rx Allergies Allergy/AdvReac Type Severity Reaction Status Date / Time Penicillins Allergy Unknown Verified 03/15/18 14:53 all cillins Allergy Unknown Uncoded 07/06/18 11:23 ED Review of Systems ROS: Stated complaint: SORENESS WHEN COUGHING Other details as noted in HPI Comment: All other systems reviewed and negative Constitutional: malaise Respiratory: cough. denies: shortness of breath Cardiovascular: denies: chest pain ED Past Medical Hx - Past Medical History Previous Medical History?: Yes Hx Diabetes: Yes ("borderline"--no meds) Hx Asthma: Yes Additional medical history: childhood heart murmur (Age 13). high cholesterol (no meds). obesity - Surgical History Past Surgical History?: Yes Additional Surgical History: 2010; D&C 2006,03/11/2017 left knee surgery - Social History Smoking Status: Never Smoker Substance Use Type: None - Medications Home Medications: Home Medications Medication Instructions Recorded Confirmed Last Taken Type ALBUTEROL Inhaler (OR & NICU) 2 puff IH QID PRN #1 inhalation 06/05/17 Unknown Rx [ProAir HFA Inhaler] Benzonatate [Tessalon Perles] 100 mg PO Q8HR #20 capsule 06/05/17 Unknown Rx Doxycycline Monohydrate 100 mg PO BID #14 capsule 06/05/17 Unknown Rx [Doxycycline Monohydrate CAP] guaiFENesin/CODEINE [Robitussin AC] 5 ml PO Q8H #180 ml 06/05/17 Unknown Rx Ibuprofen 400 mg PO QID 5 Days #20 tablet 03/15/18 Unknown Rx Cyclobenzaprine [Flexeril 10 MG 10 mg PO TID #15 tablet 08/18/18 Unknown Rx TAB] Naproxen [Naprosyn TAB] 500 mg PO BID PRN #10 tablet 08/18/18 Unknown Rx ALBUTEROL Inhaler(NF) [VENTOLIN 2 puff IH Q4H PRN #1 inha 10/13/18 Unknown Rx Inhaler(NF)] Azithromycin [Zithromax Z-SEAMUS] 250 mg PO DAILY #6 tab 10/13/18 Unknown Rx Codeine Phosphate/Guaifenesin 5 ml PO TID PRN #120 ml 10/13/18 Unknown Rx [Guaifenesin-Codeine Syrup] Ibuprofen 800 mg PO TID PRN #30 tablet 10/13/18 Unknown Rx ED Physical Exam - General Limitations: No Limitations General appearance: alert, in no apparent distress - Head Head exam: Present: atraumatic, normocephalic - Eye Eye exam: Present: normal appearance - ENT ENT exam: Present: mucous membranes moist - Neck Neck exam: Present: normal inspection. Absent: tenderness, meningismus - Respiratory Respiratory exam: Present: normal lung sounds bilaterally. Absent: respiratory distress, wheezes, rales, rhonchi - Cardiovascular Cardiovascular Exam: Present: regular rate, normal rhythm. Absent: systolic murmur, diastolic murmur, rubs, gallop - GI/Abdominal GI/Abdominal exam: Present: soft, normal bowel sounds - Extremities Exam Extremities exam: Present: normal inspection - Back Exam Back exam: Present: normal inspection - Neurological Exam Neurological exam: Present: alert, oriented X3 - Psychiatric Psychiatric exam: Present: normal affect, normal mood - Skin Skin exam: Present: warm, dry, intact, normal color. Absent: rash ED Course Vital Signs 10/20/18 14:03 Temperature 97.9 F Pulse Rate 92 H Respiratory 18 Rate Blood Pressure 135/66 O2 Sat by Pulse 97 Oximetry ED Medical Decision Making - Medical Decision Making Fortunately Jonathan is recovering from community acquired pneumonia and likely influenza. Given reassurance. Instructed to continue to hydrate and rest. She appears well today. Discharged home with instructions for supportive care. Critical care attestation.: If time is entered above; I have spent that time in minutes in the direct care of this critically ill patient, excluding procedure time. ED Disposition Clinical Impression: Muscle ache, History of pneumonia, Flu-like symptoms Disposition: DC-01 TO HOME OR SELFCARE Is pt being admited?: No Does the pt Need Aspirin: No Condition: Stable Referrals: JOHNNY RUBALCAVA MD [Primary Care Provider] - 3-5 Days Forms: Work/School Release Form(ED)
== END 2018-10-20 14:33 | disposition home or self-care (01) ==
LOC: ED 13:52
CPT/HCPCS: 99282

== ENCOUNTER 2019-07-25 10:45 | Emergency (ER) | payer MEDICAID ==
[2019-07-25 10:57] VITALS: BP 108/73
--- NOTE | 2019-07-25 12:54 | Emergency Department Report ---
ED Back Pain/Injury HPI - General Chief Complaint: Urogenital-Female Stated Complaint: 3 DAYS HEADACHE/BACK PAIN Time Seen by Provider: 07/25/19 11:00 Source: patient Limitations: No Limitations - History of Present Illness Initial Comments: This is a 34-year-old female nontoxic, well nourished in appearance, no acute signs of distress presents to the ED with c/o of acute on chronic lower back pain and headache. Patient describes headache as diffuse with level of 3 out of 10. Patient denies thunderclap headache. Patient denies any radiation of pain. Patient denies any head trauma. Patient denies any visual changes. Patient denies worse headache. Patient stated that darkness makes headache better and bright lights make the headache worse. 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 Patient stated that the past 2 days she was moving and developed this pain. 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 PAtient denies any radiation of pain. Patient denies any trauma. Denies any bladder or bowel instability. Patient denies any urinary symptoms. Denies any fever, chills, nausea, vomiting, stiff neck, chest pain or shortness of breath. Patient denies any numbness or tingling. Stated allergies to PCN. PMH includes migrane headches,. MD Complaint: back pain, other (hedache) -: days(s) Similar Symptoms Previously: Yes Place: home Radiation: none Severity: mild Severity scale (0 -10): 3 Quality: aching Consistency: constant Improves With: immobilization, sitting upright Worsens With: movement, walking Context: while lifting, turning/twisting Associated Symptoms: headaches. denies: confusion, weakness, chest pain, numbness, difficulty walking, cough, difficulty urinating, diaphoresis, incontinence, constipation, abdominal pain, loss of appetite, malaise, nausea/vomiting, rash, seizure, shortness of breath, syncope - Related Data Previous Rx's Medication Instructions Recorded Last Taken Type ALBUTEROL Inhaler (OR & NICU) 2 puff IH QID PRN #1 inhalation 06/05/17 Unknown Rx [ProAir HFA Inhaler] Benzonatate [Tessalon Perles] 100 mg PO Q8HR #20 capsule 06/05/17 Unknown Rx Doxycycline Monohydrate 100 mg PO BID #14 capsule 06/05/17 Unknown Rx [Doxycycline Monohydrate CAP] guaiFENesin/CODEINE [Robitussin AC] 5 ml PO Q8H #180 ml 06/05/17 Unknown Rx Ibuprofen [Ibuprofen 400] 400 mg PO QID 5 Days #20 tablet 03/15/18 Unknown Rx Cyclobenzaprine [Flexeril 10 MG 10 mg PO TID #15 tablet 08/18/18 Unknown Rx TAB] Naproxen [Naprosyn TAB] 500 mg PO BID PRN #10 tablet 08/18/18 Unknown Rx ALBUTEROL Inhaler(NF) [VENTOLIN 2 puff IH Q4H PRN #1 inha 10/13/18 Unknown Rx Inhaler(NF)] Azithromycin [Zithromax Z-SEAMUS] 250 mg PO DAILY #6 tab 10/13/18 Unknown Rx Codeine Phosphate/Guaifenesin 5 ml PO TID PRN #120 ml 10/13/18 Unknown Rx [Guaifenesin-Codeine Syrup] Ibuprofen [Ibuprofen 800] 800 mg PO TID PRN #30 tablet 10/13/18 Unknown Rx Naproxen [Naprosyn] 500 mg PO BID PRN #20 tablet 06/23/19 Unknown Rx Cyclobenzaprine [Flexeril] 10 mg PO QHS PRN #10 tablet 07/25/19 Unknown Rx Ibuprofen [Motrin] 600 mg PO Q8H PRN #20 tablet 07/25/19 Unknown Rx Allergies Allergy/AdvReac Type Severity Reaction Status Date / Time Penicillins Allergy Unknown Verified 07/25/19 10:51 all cillins Allergy Unknown Uncoded 07/06/18 11:23 ED Review of Systems ROS: Stated complaint: 3 DAYS HEADACHE/BACK PAIN Other details as noted in HPI Constitutional: denies: chills, fever Eyes: denies: eye pain, eye discharge, vision change ENT: denies: ear pain, throat pain Respiratory: denies: cough, shortness of breath, wheezing Cardiovascular: denies: chest pain, palpitations Endocrine: no symptoms reported Gastrointestinal: denies: abdominal pain, nausea, diarrhea Genitourinary: denies: urgency, dysuria, discharge Musculoskeletal: back pain. denies: joint swelling, arthralgia Skin: denies: rash, lesions Neurological: headache. denies: weakness, paresthesias Psychiatric: denies: anxiety, depression Hematological/Lymphatic: denies: easy bleeding, easy bruising ED Past Medical Hx - Past Medical History Hx Diabetes: Yes ("borderline"--no meds) Hx Asthma: Yes Additional medical history: childhood heart murmur (Age 13). high cholesterol (no meds). obesity - Surgical History Additional Surgical History: 2010; D&C 2006,03/11/2017 left knee surgery - Social History Smoking Status: Never Smoker Substance Use Type: None - Medications Home Medications: Home Medications Medication Instructions Recorded Confirmed Last Taken Type ALBUTEROL Inhaler (OR & NICU) 2 puff IH QID PRN #1 inhalation 06/05/17 Unknown Rx [ProAir HFA Inhaler] Benzonatate [Tessalon Perles] 100 mg PO Q8HR #20 capsule 06/05/17 Unknown Rx Doxycycline Monohydrate 100 mg PO BID #14 capsule 06/05/17 Unknown Rx [Doxycycline Monohydrate CAP] guaiFENesin/CODEINE [Robitussin AC] 5 ml PO Q8H #180 ml 06/05/17 Unknown Rx Ibuprofen [Ibuprofen 400] 400 mg PO QID 5 Days #20 tablet 03/15/18 Unknown Rx Cyclobenzaprine [Flexeril 10 MG 10 mg PO TID #15 tablet 08/18/18 Unknown Rx TAB] Naproxen [Naprosyn TAB] 500 mg PO BID PRN #10 tablet 08/18/18 Unknown Rx ALBUTEROL Inhaler(NF) [VENTOLIN 2 puff IH Q4H PRN #1 inha 10/13/18 Unknown Rx Inhaler(NF)] Azithromycin [Zithromax Z-SEAMUS] 250 mg PO DAILY #6 tab 10/13/18 Unknown Rx Codeine Phosphate/Guaifenesin 5 ml PO TID PRN #120 ml 10/13/18 Unknown Rx [Guaifenesin-Codeine Syrup] Ibuprofen [Ibuprofen 800] 800 mg PO TID PRN #30 tablet 10/13/18 Unknown Rx Naproxen [Naprosyn] 500 mg PO BID PRN #20 tablet 06/23/19 Unknown Rx Cyclobenzaprine [Flexeril] 10 mg PO QHS PRN #10 tablet 07/25/19 Unknown Rx Ibuprofen [Motrin] 600 mg PO Q8H PRN #20 tablet 07/25/19 Unknown Rx ED Physical Exam - General Limitations: No Limitations General appearance: alert, in no apparent distress - Head Head exam: Present: atraumatic, normocephalic - Eye Eye exam: Present: normal appearance, PERRL, EOMI - Neck Neck exam: Present: normal inspection, full ROM. Absent: tenderness, meningismus, lymphadenopathy - GI/Abdominal GI/Abdominal exam: Present: soft, normal bowel sounds. Absent: distended, tenderness, guarding, rebound, rigid, diminished bowel sounds - Extremities Exam Extremities exam: Present: normal inspection, full ROM - Back Exam Back exam: Present: normal inspection, full ROM, paraspinal tenderness (lumbar paraspinal). Absent: tenderness, CVA tenderness (R), CVA tenderness (L), muscle spasm, vertebral tenderness, rash noted - Expanded Back Exam Expanded Back exam: Absent: saddle anesthesia Back exam: Negative Straight Leg Raising: Left, Right - Neurological Exam Neurological exam: Present: alert, oriented X3, normal gait - Psychiatric Psychiatric exam: Present: normal affect, normal mood - Skin Skin exam: Present: warm, dry, intact, normal color. Absent: rash ED Course Vital Signs 07/25/19 10:55 Temperature 98.1 F Pulse Rate 58 L Respiratory 18 Rate Blood Pressure 108/73 O2 Sat by Pulse 100 Oximetry - Reevaluation(s) Reevaluation #1: 07/25/19 12:56 Patient is speaking in full sentences with no signs of distress noted. ED Medical Decision Making - Medical Decision Making This is a 34-year-old female that presents with headache and low back strain. Patient is stable was examined by me. There is no spinal tenderness. Patient is neurologically stable. There is no stiff neck or neck pain. There is no cauda equina syndrome during examination. UA obtained and unremarkable. No bladder or bowel instability. Patient received Toradol 60 mg IM in the ED which preceded his symptoms has resolved and subsided. Patient is discharged with muscle relaxant and Motrin. Patient was instructed not to operate any machinery while taking muscle relaxant as they cause her drowsiness. Patient was referred to Follow-up with a primary care doctor in 3-5 days or if symptoms worsen and continue return to emergency room as soon as possible. At time of discharge, the patient does not seem toxic or ill in appearance. No acute signs of distress noted. Patient agrees to discharge treatment plan of care. No further questions noted by the patient. This chart is dictated with using [employer] Dictation Program - Differential Diagnosis cauda equina syndrome, lumbar strain, intracranial hemorrhage, headache Critical care attestation.: If time is entered above; I have spent that time in minutes in the direct care of this critically ill patient, excluding procedure time. ED Disposition Clinical Impression: Headache Qualifiers: Headache type: unspecified Headache chronicity pattern: episodic headache Intractability: not intractable Qualified Code(s): R51 - Headache Low back strain Qualifiers: Encounter type: initial encounter Qualified Code(s): S39.012A - Strain of muscle, fascia and tendon of lower back, initial encounter Disposition: TO HOME OR SELFCARE Is pt being admited?: No Does the pt Need Aspirin: No Condition: Stable Instructions: Low Back Strain (ED), Acute Headache (ED) Additional Instructions: Follow-up with your primary care doctor in 3-5 days or if symptoms worsen such as bladder or bowel stability, chest pain, short of breath, numbness or tingling sensation in extremities, headache, dizziness, visual changes, nausea vomiting, or abdominal pain, return back to emergency room as was possible. Take ibuprofen and Flexeril as prescribed. Do not operate heavy machinery while taking Flexeril due to sedation Prescriptions: Cyclobenzaprine [Flexeril] 10 mg PO QHS PRN #10 tablet PRN Reason: Muscle Spasm Ibuprofen [Motrin] 600 mg PO Q8H PRN #20 tablet PRN Reason: Pain Referrals: PRIMARY CAREMD [Primary Care Provider] - 3-5 Days SINDI PETTY MD [Staff Physician] - 3-5 Days [facility] [Outside] - 3-5 Days [facility] [Outside] - 3-5 Days Forms: Work/School Release Form(ED)
[2019-07-25 13:19] LABS: Bilirubin,Urine NEG (Negative); Blood,Urine MOD (Negative); Color,Urine Yellow (Yellow); HCG Qualitative,Urine Negative (Negative); Mucus,Urine FEW /HPF; Protein,Urine <15 mg/dL mg/dL (Negative); Urobilinogen,Urine < 2.0 mg/dL (<2.0)
[2019-07-25] MEDS ORDERED: TORADOL IM ONE (13:24)
[2019-07-25] MEDS ORDERED: DELTASONE PO ONE (13:25)
== END 2019-07-25 15:31 | disposition home or self-care (01) ==
LOC: ED 10:45
DX: S39.012A Strain of muscle, fascia and tendon of lower back, initial encounter (principal); R51 Headache; J45.909 Unspecified asthma, uncomplicated; E11.9 Type 2 diabetes mellitus without complications; E78.00 Pure hypercholesterolemia, unspecified; E66.9 Obesity, unspecified; Z68.42 Body mass index [BMI] 45.0-49.9, adult; Z88.0 Allergy status to penicillin; Z79.899 Other long term (current) drug therapy; Z88.1 Allergy status to other antibiotic agents; Z98.890 Other specified postprocedural states; X50.0XXA Overexertion from strenuous movement or load, initial encounter; Y93.89 Activity, other specified; Y92.69 Other specified industrial and construction area as the place of occurrence of the external cause; Y99.8 Other external cause status
CPT/HCPCS: 81001; 81025; 96372; 99283; J1885; J7512

== ENCOUNTER 2019-08-11 08:08 | Emergency (ER) | payer MEDICAID ==
[2019-08-11 08:14] VITALS: BP 121/50
--- NOTE | 2019-08-11 09:43 | Emergency Department Report ---
ED General Adult HPI - General Chief complaint: Vaginal Bleeding Stated complaint: 6WKS /SPOTTING Time Seen by Provider: 08/11/19 08:29 Source: patient Mode of arrival: Ambulatory Limitations: No Limitations - History of Present Illness Initial comments: Patient presents to the emergency department with a chief complaint of vaginal spotting and mild abdominal cramping that started yesterday that has now completely resolved. 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 Patient states she is scheduled for ultrasound this upcoming Friday. As mentioned the patient states she is no longer having abdominal cramping or vaginal bleeding. Patient states she is just here to get checked out due to her fears of having another miscarriage. -: Sudden Severity scale (0 -10): 0 Consistency: now resolved Improves with: none Worsens with: none Associated Symptoms: denies other symptoms Treatments Prior to Arrival: none - Related Data Previous Rx's Medication Instructions Recorded Last Taken Type ALBUTEROL Inhaler (OR & NICU) 2 puff IH QID PRN #1 inhalation 06/05/17 Unknown Rx [ProAir HFA Inhaler] Benzonatate [Tessalon Perles] 100 mg PO Q8HR #20 capsule 06/05/17 Unknown Rx Doxycycline Monohydrate 100 mg PO BID #14 capsule 06/05/17 Unknown Rx [Doxycycline Monohydrate CAP] guaiFENesin/CODEINE [Robitussin AC] 5 ml PO Q8H #180 ml 06/05/17 Unknown Rx Ibuprofen [Ibuprofen 400] 400 mg PO QID 5 Days #20 tablet 03/15/18 Unknown Rx Cyclobenzaprine [Flexeril 10 MG 10 mg PO TID #15 tablet 08/18/18 Unknown Rx TAB] Naproxen [Naprosyn TAB] 500 mg PO BID PRN #10 tablet 08/18/18 Unknown Rx ALBUTEROL Inhaler(NF) [VENTOLIN 2 puff IH Q4H PRN #1 inha 10/13/18 Unknown Rx Inhaler(NF)] Azithromycin [Zithromax Z-SEAMUS] 250 mg PO DAILY #6 tab 10/13/18 Unknown Rx Codeine Phosphate/Guaifenesin 5 ml PO TID PRN #120 ml 10/13/18 Unknown Rx [Guaifenesin-Codeine Syrup] Ibuprofen [Ibuprofen 800] 800 mg PO TID PRN #30 tablet 10/13/18 Unknown Rx Naproxen [Naprosyn] 500 mg PO BID PRN #20 tablet 06/23/19 Unknown Rx Cyclobenzaprine [Flexeril] 10 mg PO QHS PRN #10 tablet 07/25/19 Unknown Rx Ibuprofen [Motrin] 600 mg PO Q8H PRN #20 tablet 07/25/19 Unknown Rx Allergies Allergy/AdvReac Type Severity Reaction Status Date / Time Penicillins Allergy Unknown Verified 07/25/19 10:51 all cillins Allergy Unknown Uncoded 07/06/18 11:23 ED Review of Systems ROS: Stated complaint: 6WKS /SPOTTING Other details as noted in HPI Comment: All other systems reviewed and negative Constitutional: denies: chills, fever Eyes: denies: eye pain, eye discharge, vision change ENT: denies: ear pain, throat pain Respiratory: denies: cough, shortness of breath, wheezing Cardiovascular: denies: chest pain, palpitations Endocrine: no symptoms reported Gastrointestinal: denies: abdominal pain, nausea, diarrhea Genitourinary: denies: urgency, dysuria, discharge Musculoskeletal: denies: back pain, joint swelling, arthralgia Skin: denies: rash, lesions Neurological: denies: headache, weakness, paresthesias Psychiatric: denies: anxiety, depression Hematological/Lymphatic: denies: easy bleeding, easy bruising ED Past Medical Hx - Past Medical History Previous Medical History?: Yes Hx Diabetes: Yes ("borderline"--no meds) Hx Asthma: Yes Additional medical history: childhood heart murmur (Age 13). high cholesterol (no meds). obesity - Surgical History Past Surgical History?: Yes Additional Surgical History: 2010; D&C 2006,03/11/2017 left knee surgery - Social History Smoking Status: Never Smoker - Medications Home Medications: Home Medications Medication Instructions Recorded Confirmed Last Taken Type ALBUTEROL Inhaler (OR & NICU) 2 puff IH QID PRN #1 inhalation 06/05/17 Unknown Rx [ProAir HFA Inhaler] Benzonatate [Tessalon Perles] 100 mg PO Q8HR #20 capsule 06/05/17 Unknown Rx Doxycycline Monohydrate 100 mg PO BID #14 capsule 06/05/17 Unknown Rx [Doxycycline Monohydrate CAP] guaiFENesin/CODEINE [Robitussin AC] 5 ml PO Q8H #180 ml 06/05/17 Unknown Rx Ibuprofen [Ibuprofen 400] 400 mg PO QID 5 Days #20 tablet 03/15/18 Unknown Rx Cyclobenzaprine [Flexeril 10 MG 10 mg PO TID #15 tablet 08/18/18 Unknown Rx TAB] Naproxen [Naprosyn TAB] 500 mg PO BID PRN #10 tablet 08/18/18 Unknown Rx ALBUTEROL Inhaler(NF) [VENTOLIN 2 puff IH Q4H PRN #1 inha 10/13/18 Unknown Rx Inhaler(NF)] Azithromycin [Zithromax Z-SEAMUS] 250 mg PO DAILY #6 tab 10/13/18 Unknown Rx Codeine Phosphate/Guaifenesin 5 ml PO TID PRN #120 ml 10/13/18 Unknown Rx [Guaifenesin-Codeine Syrup] Ibuprofen [Ibuprofen 800] 800 mg PO TID PRN #30 tablet 10/13/18 Unknown Rx Naproxen [Naprosyn] 500 mg PO BID PRN #20 tablet 06/23/19 Unknown Rx Cyclobenzaprine [Flexeril] 10 mg PO QHS PRN #10 tablet 07/25/19 Unknown Rx Ibuprofen [Motrin] 600 mg PO Q8H PRN #20 tablet 07/25/19 Unknown Rx ED Physical Exam - General Limitations: No Limitations General appearance: alert, in no apparent distress - Head Head exam: Present: atraumatic, normocephalic - Eye Eye exam: Present: normal appearance, PERRL, EOMI - ENT ENT exam: Present: mucous membranes moist - Neck Neck exam: Present: normal inspection - Respiratory Respiratory exam: Present: normal lung sounds bilaterally. Absent: respiratory distress - Cardiovascular Cardiovascular Exam: Present: regular rate, normal rhythm. Absent: systolic murmur, diastolic murmur, rubs, gallop - GI/Abdominal GI/Abdominal exam: Present: soft, normal bowel sounds. Absent: distended, tenderness - Rectal Rectal exam: Present: deferred - External exam: Present: other (deferred) Speculum exam: Present: other (deferred) Bi-manual exam: Present: other (deferred) - Extremities Exam Extremities exam: Present: normal inspection - Back Exam Back exam: Present: normal inspection - Neurological Exam Neurological exam: Present: alert, oriented X3 - Psychiatric Psychiatric exam: Present: normal affect, normal mood - Skin Skin exam: Present: warm, dry, intact, normal color. Absent: rash ED Course Vital Signs 08/11/19 08:12 Temperature 98.9 F Pulse Rate 59 L Respiratory 18 Rate Blood Pressure 121/50 O2 Sat by Pulse 98 Oximetry ED Medical Decision Making - Lab Data Result diagrams: 08/11/19 09:26 08/11/19 09:26 Lab Results 08/11/19 08/11/19 08/11/19 Range/Units 09:26 09: 09:26 WBC 6.9 (4.5-11.0) K/mm3 RBC 4.09 (3.65-5.03) M/mm3 Hgb 12.6 (10.1-14.3) gm/dl Hct 38.0 (30.3-42.9) % MCV 93 (79-97) fl MCH 31 (28-32) pg MCHC 33 (30-34) % RDW 13.2 (13.2-15.2) % Plt Count 272 (140-440) K/mm3 Lymph % (Auto) 40.8 H (13.4-35.0) % [place] % (Auto) 9.7 H (0.0-7.3) % Eos % (Auto) 2.9 (0.0-4.3) % Baso % (Auto) 0.5 (0.0-1.8) % Lymph # 2.8 (1.2-5.4) K/mm3 [place] # 0.7 (0.0-0.8) K/mm3 Eos # 0.2 (0.0-0.4) K/mm3 Baso # 0.0 (0.0-0.1) K/mm3 Seg Neutrophils % 46.1 (40.0-70.0) % Seg Neutrophils # 3.2 (1.8-7.7) K/mm3 PT 14.5 (12.2-14.9) Sec. INR 1.14 H (0.87-1.13) APTT 32.8 (24.2-36.6) Sec. Sodium 141 (137-145) mmol/L Potassium 4.4 (3.6-5.0) mmol/L Chloride 105.3 (98-107) mmol/L Carbon Dioxide 25 (22-30) mmol/L Anion Gap 15 mmol/L BUN 11 (7-17) mg/dL Creatinine 0.7 (0.7-1.2) mg/dL Estimated GFR > 60 ml/min BUN/Creatinine Ratio 16 % Glucose 104 H (65-100) mg/dL Calcium 9.3 (8.4-10.2) mg/dL Total Bilirubin 0.20 (0.1-1.2) mg/dL AST 8 (5-40) units/L ALT 8 (7-56) units/L Alkaline Phosphatase 70 (35-129) units/L Total Protein 7.4 (6.3-8.2) g/dL Albumin 3.9 (3.9-5) g/dL Albumin/Globulin Ratio 1.1 % HCG, Quant (0-4) mIU/mL 08/11/19 Range/Units 09:26 WBC (4.5-11.0) K/mm3 RBC (3.65-5.03) M/mm3 Hgb (10.1-14.3) gm/dl Hct (30.3-42.9) % MCV (79-97) fl MCH (28-32) pg MCHC (30-34) % RDW (13.2-15.2) % Plt Count (140-440) K/mm3 Lymph % (Auto) (13.4-35.0) % [place] % (Auto) (0.0-7.3) % Eos % (Auto) (0.0-4.3) % Baso % (Auto) (0.0-1.8) % Lymph # (1.2-5.4) K/mm3 [place] # (0.0-0.8) K/mm3 Eos # (0.0-0.4) K/mm3 Baso # (0.0-0.1) K/mm3 Seg Neutrophils % (40.0-70.0) % Seg Neutrophils # (1.8-7.7) K/mm3 PT (12.2-14.9) Sec. INR (0.87-1.13) APTT (24.2-36.6) Sec. Sodium (137-145) mmol/L Potassium (3.6-5.0) mmol/L Chloride (98-107) mmol/L Carbon Dioxide (22-30) mmol/L Anion Gap mmol/L BUN (7-17) mg/dL Creatinine (0.7-1.2) mg/dL Estimated GFR ml/min BUN/Creatinine Ratio % Glucose (65-100) mg/dL Calcium (8.4-10.2) mg/dL Total Bilirubin (0.1-1.2) mg/dL AST (5-40) units/L ALT (7-56) units/L Alkaline Phosphatase (35-129) units/L Total Protein (6.3-8.2) g/dL Albumin (3.9-5) g/dL Albumin/Globulin Ratio % HCG, Quant 6299 H (0-4) mIU/mL - Medical Decision Making Discussed results with patient Critical care attestation.: If time is entered above; I have spent that time in minutes in the direct care of this critically ill patient, excluding procedure time. ED Disposition Clinical Impression: Vaginal bleeding affecting early Disposition: DC-01 TO HOME OR SELFCARE Is pt being admited?: No Does the pt Need Aspirin: No Condition: Stable Instructions: (ED) Additional Instructions: return if worse Please return if vaginal bleeding or abdominal pain returns Please keep your [facility]EDIT[facility] [employer] PROGRAM COORDINATOR appointment [facility] as [facility] Time of Disposition: 11:29
[2019-08-11 09:50] LABS: Basophils % (Auto) 0.5 % (0.0-1.8); Eosinophils # (Auto) 0.2 K/mm3 (0.0-0.4); Eosinophils % (Auto) 2.9 % (0.0-4.3); Hemoglobin 12.6 gm/dl (10.1-14.3); Lymphocytes # (Auto) 2.8 K/mm3 (1.2-5.4); Lymphocytes % (Auto) 40.8 % (13.4-35.0); Mean Corpuscular HGB Conc 33 % (30-34); Mean Corpuscular Volume 93 fl (79-97); Monocytes # (Auto) 0.7 K/mm3 (0.0-0.8); Monocytes % (Auto) 9.7 % (0.0-7.3); Platelet Count 272 K/mm3 (140-440); Red Blood Count 4.09 M/mm3 (3.65-5.03); Red Cell Distribution Width 13.2 % (13.2-15.2)
[2019-08-11 10:05] LABS: Alanine Aminotransferase 8 units/L (7-56); Albumin 3.9 g/dL (3.9-5); BUN/Creatinine Ratio 16; Blood Urea Nitrogen 11 mg/dL (7-17); Calcium 9.3 mg/dL (8.4-10.2); Hemolysis Index 3
[2019-08-11 10:46] LABS: INR 1.14 (0.87-1.13); Partial Thromboplastin Time 32.8 Sec. (24.2-36.6)
== END 2019-08-11 11:35 | disposition home or self-care (01) ==
LOC: ED 08:08
DX: O20.9 Hemorrhage in early pregnancy, unspecified (principal); O99.511 Diseases of the respiratory system complicating pregnancy, first trimester; J45.909 Unspecified asthma, uncomplicated; E78.00 Pure hypercholesterolemia, unspecified; Z98.890 Other specified postprocedural states; Z88.0 Allergy status to penicillin; Z88.1 Allergy status to other antibiotic agents; Z79.1 Long term (current) use of non-steroidal anti-inflammatories (NSAID); Z79.899 Other long term (current) drug therapy; Z3A.01 Less than 8 weeks gestation of pregnancy
CPT/HCPCS: 36415; 80053; 84702; 85025; 85610; 85730; 99283

== ENCOUNTER 2020-06-02 11:18 | Day surgery (SDC) | payer MEDICAID ==
[2020-05-30 11:11] LABS: Hematocrit 36.2 % (30.3-42.9); Hemoglobin 12.2 gm/dl (10.1-14.3); Mean Corpuscular HGB Conc 34 % (30-34); Mean Corpuscular Volume 89 fl (79-97); Platelet Count 270 K/mm3 (140-440); Red Blood Count 4.05 M/mm3 (3.65-5.03); Red Cell Distribution Width 14.6 % (13.2-15.2)
--- NOTE | 2020-05-30 12:22 | History and Physical Report ---
History of Present Illness Date of examination: 05/30/20 History of present illness: PT is a who desires sterilization. PT with h/o C/S x 1. PT will presenting on 06/02 for a Lap BTL. Past History Past Medical History: asthma, high cholesterol Past Surgical History: section, D&C Social history: no significant social history - Obstetrical History : 4 Medications and Allergies Allergies Allergy/AdvReac Type Severity Reaction Status Date / Time Penicillins Allergy Anaphylaxis Verified 05/26/20 13:03 Home Medications Medication Instructions Recorded Confirmed Last Taken Type ALBUTEROL Inhaler(NF) [VENTOLIN 2 puff IH Q4H PRN #1 inha 10/13/18 06/02/20 2 Years Ago Rx Inhaler(NF)] ~06/02/18 Vit-Fe Fumar-FA [ 1 tab PO QDAY 05/26/20 06/02/20 05/31/20 His tory Vitamin] Review of Systems All systems: negative (except HPI) - Physical Exam Cardiovascular: Regular rate, No murmurs Lungs: Positive: Clear to auscultation Abdomen: Positive: normal appearance, soft Results Result Diagrams: 05/30/20 10:46 All other labs normal. Assessment and Plan - Patient Problems (1) Sterilization Current Visit: No Status: Acute Plan to address problem: PT will presenting on 06/02 for a Lap BTL. PT understands and agrees that if the case cannot be done laparoscopically then the case will be stopped and will have RTO for an IUD instead. PT is aware of the approximately 12/999 risk of BTL failure. Patient fully consented for the surgery. Risks, benefits, and alternatives were all discussed with the patient including risk of bleeding, infection, and potential for injury. Patient understands and accepts these risks. Patient agrees to proceed with surgery. All questions were answered.
[~2020-06-02 11:18] MED LIST: CELECOXIB 200 MG CAP PO NR; GABAPENTIN 300 MG CAP PO NR; LACTATED RINGERS 1,000 ML IV SCH; MAGNESIUM OXIDE 400 MG TAB PO SCH; MIDAZOLAM 2 MG/2 ML INJ IV NR
--- NOTE | 2020-06-02 11:48 | Anesthesia Consultation ---
Anesthesia Consult and Med Hx Date of service: 06/02/20 - Airway Anesthetic Teeth Evaluation: Good ROM Head & Neck: Adequate Mental/Hyoid Distance: Adequate Mallampati Class: Class II Intubation Access Assessment: Probably Good - Pulmonary Exam CTA: Yes - Cardiac Exam Cardiac Exam: RRR - Pre-Operative Health Status ASA Pre-Surgery Classification: ASA3 Proposed Anesthetic Plan: General - Pulmonary Hx Smoking: No Hx Asthma: Yes (last inhaler use 2yrs ago) Hx Respiratory Symptoms: No - Cardiovascular System Hx Hypertension: No Hx Heart Attack/AMI: No Hx Percutaneous Transluminal Coronary Angioplasty (PTCA): No Hx Cardia Arrhythmia: No Hx Heart Murmur: Yes - Central Nervous System Hx Neuromuscular Disorder: No CVA: No Hx Psychiatric Problems: No - Gastrointestinal Hx Gastroesophageal Reflux Disease: No - Endocrine Hx Renal Disease: No Hx Liver Disease: No Hx Insulin Dependent Diabetes: No Hx Non-Insulin Dependent Diabetes: No Hx Thyroid Disease: No - Other Systems Hx Obesity: Yes (BMI 52) - Additional Comments Anesthesia Medical History Comments: No hx anesthetic complications. Hx DVT 2017; no longer on anticoagulation.
[2020-06-02] MEDS ORDERED: HYDROmorphone 1 MG/1 ML INJ IV PRN (11:49)
--- NOTE | 2020-06-02 11:49 | Anesthesia Day of Surgery ---
Anesthesia Day of Surgery - Day of Surgery Patient Examined: Yes Patient H&P Reviewed: Yes Patient is NPO: Yes
[2020-06-02] MEDS ORDERED: LIDOCAINE MPF (2%) 20 MG/1 ML VIAL 5 ML ONE (12:37)
[2020-06-02] MEDS ORDERED: ROCURONIUM 50 MG/5 ML INJ IV ONE (12:37)
[2020-06-02] MEDS ORDERED: SUCCINYLCHOLINE CHLORIDE 200 MG/10 ML INJ MDV ONE (12:37)
[2020-06-02] MEDS ORDERED: dexAMETHasone 20 MG/5 ML VIAL ONE (12:37)
[2020-06-02] MEDS ORDERED: propofoL 200 MG/20 ML VIAL IV ONE (12:37)
[2020-06-02] MEDS ORDERED: fentaNYL 100 MCG/2 ML INJ ONE ×2 (12:37→14:09)
[2020-06-02] MEDS ORDERED: ONDANSETRON 4 MG/2 ML INJ ONE (13:29)
[2020-06-02] MEDS ORDERED: BUPIVACAINE/PF (0.5%) 5 MG/1 ML 30 ML VIAL INFILTRATI ONE ×2 (13:30→13:55)
[2020-06-02] MEDS ORDERED: SODIUM CHLORIDE 0.9% IRR 1,500 ML BOTTLE IR ONE (13:56)
[2020-06-02] MEDS ORDERED: NEOSTIGMINE 10MG/10 ML INJ MDV ONE (14:20)
[2020-06-02] MEDS ORDERED: GLYCOPYRROLATE 0.4 MG/2 ML INJ ONE (14:21)
[2020-06-02] MEDS ORDERED: LACTATED RINGERS 1,000 ML ONE (14:22)
--- NOTE | 2020-06-02 14:32 | Post Operative Note ---
Date of procedure: 06/02/20 Pre-op diagnosis: Desires sterilization Post-op diagnosis: same Findings: Normal uterus, normal left tube and ovary. View of the right ovary was limited but was within the normal limits from what could be visualized. Visualization was limited by significant scarring in the right adnexa area. This scarring also covered the vast majority of that right tube. Only about 1 cm of the proximal tube was able to be visualized. There is also a band of omental adhesions that extended up to the anterior wall in the midline. The rest of the abdominal survey was within normal limits. Procedure: Indication: 35-year-old -0-1-3 desires sterilization. Patient with a history of a Procedure: Laparoscopic bilateral tubal ligation. Patient taken the operating room and prepped and draped in usual fashion. Attention was first turned vaginally where single-tooth tenaculum was applied to the anterior lip of the cervix and an acorn uterine manipulator was placed. Attention was now turned abdominally where a 5 mm incision was made in the umbilicus. Veres needle then placed in the abdominal cavity. The abdomen was appropriately insufflated with CO2 gas. Veres needle removed and the 5 mm trocar was placed in abdominal cavity. Placement confirmed with the camera. Attention was turned suprapubically where an 8 mm incision was made and the 8 mm trocar was placed suprapubically in the midline under direct visualization. Trocar placed successfully and without difficulty. Attention was first turned to assess in the abdomen and pelvis. Findings noted above. Attention was then turned to lysing the above-noted omental band of adhesions that extended to the anterior uterine wall. This was done with EndoShears with cautery. This was done successfully with good hemostasis. Attention turned to the tubal ligation where a Filshie clip was applied to the left tube. Attention was then turned to the right side. I attempted to gently dissect off some of the scarring from the fallopian tube to increase visualization. Visualization was only slightly increased. The scarring was too dense to continue the lysis of adhesions safely. The Filshie clip was applied to that 1 cm segment of tube that was vis ible. Each clip encompassed the full width of the tube on each side and good hemostasis was noted afterwards on both sides. At this point the abdomen was fully desufflated. Good hemostasis noted. Trochars were removed. Trocar sites were closed with 4-0 Vicryl in a subcuticular fashion followed by Marcaine. The acorn uterine manipulator and single-tooth tenaculum were removed. Procedure concluded at this point. Patient tolerated the procedure well. All instrument lap counts were correct. Patient taken to the recovery room in stable condition. Of note since the right Filshie clip was a applied so close to the uterus, I will have her get an HSG as an outpatient. Anesthesia: GETA Surgeon: CLARISSA CASTRO Estimated blood loss: minimal Pathology: none Specimen disposition: to lab Condition: stable Disposition: PACU
--- NOTE | 2020-06-02 14:35 | Short Stay Summary ---
Short Stay Documentation Date of service: 06/02/20 Narrative H&P: Patient presented on 06/02/2020 for her scheduled laparoscopic tubal ligation. Surgery was uncomplicated except for the fact that she had significant scarring in the right adnexa which obscured visualization of the majority of the right tube. Only about a 1 cm portion of the right tube on the proximal and was able to be visualized. A Filshie clip was applied there but since it had to be placed to close the uterus, I will have her get an HSG as an outpatient. See the patient's H&P and operative report for other details. - History H&P: dictated Social history: no significant social history - Allergies and Medications Current Medications: Allergies Penicillins Allergy (Verified 05/26/20 13:03) Anaphylaxis Home Medications Medication Instructions Recorded Confirmed Last Taken Type ALBUTEROL Inhaler(NF) [VENTOLIN 2 puff IH Q4H PRN #1 inha 10/13/18 06/02/20 2 Years Ago Rx Inhaler(NF)] ~06/02/18 Vit-Fe Fumar-FA [ 1 tab PO QDAY 05/26/20 06/02/20 05/31/20 History Vitamin] Active Medications Celecoxib (Celebrex) 200 mg PO PREOP NR Stop: 06/02/20 23:00 Last Admin: 06/02/20 11:35 Dose: 200 mg Documented by: Gabapentin (Gabapentin) 600 mg PO PREOP NR Stop: 06/02/20 23:00 Last Admin: 06/02/20 11:35 Dose: 600 mg Documented by: Hydromorphone HCl (Dilaudid) 0.5 mg IV Q10MIN PRN PRN Reason: Pain , Severe (7-10) Stop: 06/02/20 23:59 Lactated Ringer's (Lactated Ringers) 1,000 mls @ 100 mls/hr IV DIRECT BEKA Stop: 06/02/20 23:59 Last Admin: 06/02/20 11:55 Dose: 100 mls/hr Documented by: Magnesium Oxide (Mag-Ox) 400 mg PO PREOP BEKA Stop: 06/02/20 23:00 Last Admin: 06/02/20 11:35 Dose: 400 mg Documented by: Midazolam HCl (Versed) 2 mg IV PREOP NR Stop: 06/02/20 23:00 Last Admin: 06/02/20 11:58 Dose: 2 mg Documented by: - Disposition Condition at discharge: Stable Disposition: DC-01 TO HOME OR SELFCARE - Discharge Diagnoses (1) Sterilization Status: Acute Short Stay Discharge Plan Follow up with: UYEN SPRINGER MD [Other] - 7 Days
--- NOTE | 2020-06-02 15:57 | Post Anesthesia Evaluation ---
- Post Anesthesia Evaluation Patient Participated: Yes Airway Patent: Yes Stable Respiratory Function: Yes Nausea/Vomiting: No Temp > 96.8F: Yes Pain Manageable: Yes Adequeate Hydration: Yes Anesthesia Complications: No
[2020-06-02 16:13] VITALS: BP 141/75
== END 2020-06-02 11:19 | disposition home or self-care (01) ==
LOC: OR 11:18
PROVIDERS: ATTEND Obstetrics & Gynecology
DX: Z30.2 Encounter for sterilization (principal); Z20.828 Contact with and (suspected) exposure to other viral communicable diseases; J45.909 Unspecified asthma, uncomplicated; E66.9 Obesity, unspecified; K21.9 Gastro-esophageal reflux disease without esophagitis; M19.90 Unspecified osteoarthritis, unspecified site; Z98.890 Other specified postprocedural states; Z98.891 History of uterine scar from previous surgery; Z88.0 Allergy status to penicillin; Z79.899 Other long term (current) drug therapy; Z86.718 Personal history of other venous thrombosis and embolism; Z68.43 Body mass index [BMI] 50.0-59.9, adult; Z83.3 Family history of diabetes mellitus; Z80.8 Family history of malignant neoplasm of other organs or systems; Z82.49 Family history of ischemic heart disease and other diseases of the circulatory system
CPT/HCPCS: 36415; 58671; 84703; 85027; J0330; J1100; J2250; J2405; J2704; J2710; J3010; J7120; U0003

== ENCOUNTER 2020-09-24 22:50 | Emergency (ER) | payer MEDICAID ==
[2020-09-25 09:21] VITALS: BP 125/68
[2020-09-25] MEDS ORDERED: HYDROGEN PEROXIDE 118 ML SOLUTION TP ONE (10:43)
--- NOTE | 2020-09-25 11:05 | Emergency Department Report ---
- General Chief complaint: Extremity Injury, Upper Stated complaint: LEFT THUMB PAIN Time Seen by Provider: 09/25/20 10:38 Source: patient Mode of arrival: Ambulatory Limitations: No Limitations - History of Present Illness Initial comments: 35-year-old male female resents emerged department complaining of a 1 week history of left thumb swelling and pain which been progressively worsening since the onset of an unknown etiology reports no fever, chills, sweats reports no chest pain palpitation no numbness or tingling. - Related Data Home Medications Medication Instructions Recorded Confirmed Last Taken Vit-Fe Fumar-FA [ 1 tab PO QDAY 05/26/20 06/02/20 05/31/20 Vitamin] Previous Rx's Medication Instructions Recorded Last Taken Type ALBUTEROL Inhaler(NF) [VENTOLIN 2 puff IH Q4H PRN #1 inha 10/13/18 2 Years Ago Rx Inhaler(NF)] ~06/02/18 Ibuprofen [Motrin 800 MG tab] 800 mg PO Q8HR PRN #30 tablet 06/02/20 Unknown Rx oxyCODONE /ACETAMINOPHEN [Percocet 1 tab PO Q4HR PRN #30 tab 06/02/20 Unknown Rx 5/325] Chlorhexidine Gluconate [Hibiclens] 10 ml TP BID #240 liquid 09/25/20 Unknown Rx Sulfamethoxazole/Trimethoprim 1 each PO BID #20 tablet 09/25/20 Unknown Rx [Bactrim Ds] Allergies Allergy/AdvReac Type Severity Reaction Status Date / Time amoxicillin Allergy Anaphylaxis Verified 09/25/20 01:42 ampicillin Allergy Anaphylaxis Verified 09/25/20 01:41 Penicillins Allergy Anaphylaxis Verified 05/26/20 13:03 Abscess Boil HPI - HPI Chief Complaint: Extremity Injury, Upper Stated Complaint: LEFT THUMB PAIN Time Seen by Provider: 09/25/20 10:38 Home Medications: Home Medications Medication Instructions Recorded Confirmed Last Taken Vit-Fe Fumar-FA [ 1 tab PO QDAY 05/26/20 06/02/20 05/31/20 Vitamin] Previous Rx's Medication Instructions Recorded Last Taken Type ALBUTEROL Inhaler(NF) [VENTOLIN 2 puff IH Q4H PRN #1 inha 10/13/18 2 Years Ago Rx Inhaler(NF)] ~06/02/18 Ibuprofen [Motrin 800 MG tab] 800 mg PO Q8HR PRN #30 tablet 06/02/20 Unknown Rx oxyCODONE /ACETAMINOPHEN [Percocet 1 tab PO Q4HR PRN #30 tab 06/02/20 Unknown Rx 5/325] Chlorhexidine Gluconate [Hibiclens] 10 ml TP BID #240 liquid 09/25/20 Unknown Rx Sulfamethoxazole/Trimethoprim 1 each PO BID #20 tablet 09/25/20 Unknown Rx [Bactrim Ds] Allergies/Adverse Reactions: Allergies Allergy/AdvReac Type Severity Reaction Status Date / Time amoxicillin Allergy Anaphylaxis Verified 09/25/20 01:42 ampicillin Allergy Anaphylaxis Verified 09/25/20 01:41 Penicillins Allergy Anaphylaxis Verified 05/26/20 13:03 ED Review of Systems ROS: Stated complaint: LEFT THUMB PAIN Other details as noted in HPI Comment: All other systems reviewed and negative ED Past Medical Hx - Past Medical History Previous Medical History?: Yes Hx Hypertension: No Hx Heart Attack/AMI: No Hx Congestive Heart Failure: No Hx Diabetes: No Hx Deep Vein Thrombosis: Yes Hx GERD: Yes Hx Liver Disease: No Hx Renal Disease: No Hx Arthritis: Yes (Knees) Hx Headaches / Migraines: Yes (Migraines) Hx Asthma: Yes (last inhaler use 2yrs ago) Additional medical history: childhood heart murmur (Age 13). high cholesterol (no meds). obesity - Surgical History Past Surgical History?: Yes Additional Surgical History: 2010; D&C 2006,03/11/2017 left knee surgery, Tubal Ligation - Social History Smoking Status: Never Smoker - Medications Home Medications: Home Medications Medication Instructions Recorded Confirmed Last Taken Type ALBUTEROL Inhaler(NF) [VENTOLIN 2 puff IH Q4H PRN #1 inha 10/13/18 06/02/20 2 Years Ago Rx Inhaler(NF)] ~06/02/18 Vit-Fe Fumar-FA [ 1 tab PO QDAY 05/26/20 06/02/20 05/31/20 History Vitamin] Ibuprofen [Motrin 800 MG tab] 800 mg PO Q8HR PRN #30 tablet 06/02/20 Unknown Rx oxyCODONE /ACETAMINOPHEN [Percocet 1 tab PO Q4HR PRN #30 tab 06/02/20 Unknown Rx 5/325] Chlorhexidine Gluconate [Hibiclens] 10 ml TP BID #240 liquid 09/25/20 Unknown Rx Sulfamethoxazole/Trimethoprim 1 each PO BID #20 tablet 09/25/20 Unknown Rx [Bactrim Ds] ED Physical Exam - General Limitations: No Limitations General appearance: alert, in no apparent distress - Head Head exam: Present: atraumatic, normocephalic - Eye Eye exam: Present: normal appearance, PERRL, EOMI Pupils: Present: normal accommodation - ENT ENT exam: Present: mucous membranes moist - Neck Neck exam: Present: normal inspection - Respiratory Respiratory exam: Present: normal lung sounds bilaterally. Absent: respiratory distress - Cardiovascular Cardiovascular Exam: Present: regular rate, normal rhythm. Absent: systolic murmur, diastolic murmur, rubs, gallop - GI/Abdominal GI/Abdominal exam: Present: soft, normal bowel sounds - Extremities Exam Extremities exam: Present: normal inspection - Back Exam Back exam: Present: normal inspection - Neurological Exam Neurological exam: Present: alert, oriented X3 - Psychiatric Psychiatric exam: Present: normal affect, normal mood - Skin Skin exam: Present: warm, dry, intact, normal color. Absent: rash ED Course Vital Signs 09/25/20 09/25/20 01:41 09:20 Temperature 98.1 F 98.2 F Pulse Rate 52 L 51 L Respiratory 18 18 Rate Blood Pressure 139/61 125/68 O2 Sat by Pulse 100 97 Oximetry - Procedure Description Procedures done: It was prepped in aseptic fashion from 11 blade was used to excise the finger to drain the paronychia which copious amounts of pus was evacuated and sent irrigated with saline and and peroxide. The procedure was tolerated well no complications Critical care attestation.: If time is entered above; I have spent that time in minutes in the direct care of this critically ill patient, excluding procedure time. ED Disposition Clinical Impression: Paronychia Disposition: DC-01 TO HOME OR SELFCARE Is pt being admited?: No Does the pt Need Aspirin: No Condition: Stable Instructions: Fingertip Infection, Paronychia Prescriptions: Sulfamethoxazole/Trimethoprim [Bactrim Ds] 1 each PO BID #20 tablet Chlorhexidine Gluconate [Hibiclens] 10 ml TP BID #240 liquid Referrals: PRIMARY CARE, [Primary Care Provider] - 3-5 Days [facility] [Provider Group] - 3-5 Days
== END 2020-09-25 12:04 | disposition home or self-care (01) ==
LOC: ED 22:50
DX: L03.012 Cellulitis of left finger (principal); K21.9 Gastro-esophageal reflux disease without esophagitis; M19.91 Primary osteoarthritis, unspecified site; G43.909 Migraine, unspecified, not intractable, without status migrainosus; J45.909 Unspecified asthma, uncomplicated; Z98.890 Other specified postprocedural states; Z79.1 Long term (current) use of non-steroidal anti-inflammatories (NSAID); Z79.899 Other long term (current) drug therapy; Z88.1 Allergy status to other antibiotic agents
CPT/HCPCS: 99282

== ENCOUNTER → 2022-03-18 | Outpatient (CLI) | payer MEDICAID | END | disposition home or self-care (01) | LOC: SLR 11:00 | PROVIDERS: ATTEND Surgery | DX: G47.30 Sleep apnea, unspecified (principal) | CPT/HCPCS: G0399 ==